=== PATIENT | male | born 1970 ===

== ENCOUNTER 2016-06-26 16:33 | Emergency (ER) | payer BC ==
[~2016-06-26] VITALS: Ht 188 cm; Wt 86.4 kg
[2016-06-26 16:37] VITALS: TEMP 97.2
[2016-06-26] MEDS ORDERED: OMEGA 31000 MG PO (16:52)
[2016-06-26 16:58] LABS: BASO # 0.1 (0.0-0.2); EOS # 0.2 (0.0-0.7); EOS % 1.4 % (0-4.0); GRAN # 7.4 (1.4-6.5); HEMATOCRIT 45.9 % (42.0-52.0); HEMOGLOBIN 15.3 g/dl (13.5-18.0); LYMPH # 2.9 (1.2-3.4); LYMPH % 25.5 % (20.0-51.0); MEAN CELL VOLUME 84 fl (80.0-100.0); MEAN CORPUSCULAR HEMOGLOBIN 28 pg (27.0-31.0); MEAN CORPUSCULAR HGB CONC 33 g/dl (33.0-37.0); MEAN PLATELET VOLUME 10.2 fl (7.4-10.4); MONO # 0.8 (0.1-0.6); MONO % 6.6 % (1.7-9.3); PLATELET COUNT 216 K/mm3 (130-400); RED BLOOD COUNT 5.44 M/mm3 (4.20-5.60); REDCELL DISTRIBUTION WIDTH-CV 12.4 % (11.5-14.5); WHITE BLOOD COUNT 11.4 K/mm3 (4.8-10.8)
[2016-06-26 17:11] LABS: ADJUSTED CALCIUM 9.6 mg/dL (8.4-10.2); ALBUMIN 4.5 gm/dL (3.5-5.0); BILIRUBIN,TOTAL 0.9 mg/dL (0.0-1.0); CREATININE, serum 1.13 mg/dL (0.66-1.25); POTASSIUM 3.6 mmol/L (3.4-5.0); TOTAL PROTEIN 7.5 gm/dL (6.4-8.2)
[2016-06-26 17:31] LABS: TROPONIN-I 0.11 ng/mL (0.000-0.034)
[2016-06-26 19:00] VITALS: BP 126/89; PULSE 68
== END 2016-06-26 19:12 | disposition short-term general hospital (02) ==
LOC: COL.ER 16:33
PROVIDERS: Emergency Medicine
DX: I21.4 Non-ST elevation (NSTEMI) myocardial infarction (principal)
CPT/HCPCS: C9113; J1650; J2060; J2270

== ENCOUNTER 2016-09-10 15:42 | Outpatient (RCR) | payer BC ==
[~2016-09-10 15:42] MED LIST: OMEGA 31000 MG PO
== END 2016-09-28 08:06 | disposition home or self-care (01) ==
LOC: COL.CR 15:42
DX: Z48.812 Encounter for surgical aftercare following surgery on the circulatory system (principal); Z95.1 Presence of aortocoronary bypass graft; Z95.5 Presence of coronary angioplasty implant and graft

== ENCOUNTER 2020-05-04 16:28 | Emergency (ER) | payer BC ==
[~2020-05-04] VITALS: Ht 190.5 cm; Wt 88.6 kg
[2020-05-04 16:35] VITALS: BP 124/81; PULSE 68; TEMP 97.6
[2020-05-04 17:28] LABS: BASO # 0.1 (0.0-0.2); BASO % 0.8 % (0.0-2.0); EOS # 0.1 (0.0-0.7); EOS % 0.6 % (0-4.0); GRAN % 62.8 % (42.2-75.2); HEMATOCRIT 43.4 % (42.0-52.0); HEMOGLOBIN 13.8 g/dl (13.5-18.0); LYMPH # 3.1 (1.2-3.4); LYMPH % 27.9 % (20.0-51.0); MEAN CELL VOLUME 88 fl (80.0-100.0); MEAN CORPUSCULAR HEMOGLOBIN 28 pg (27.0-31.0); MEAN CORPUSCULAR HGB CONC 32 g/dl (33.0-37.0); MEAN PLATELET VOLUME 10.2 fl (7.4-10.4); MONO # 0.8 (0.1-0.6); MONO % 7.5 % (1.7-9.3); PLATELET COUNT 208 K/mm3 (130-400); RED BLOOD COUNT 4.92 M/mm3 (4.20-5.60); REDCELL DISTRIBUTION WIDTH-CV 13.2 % (11.5-14.5)
[2020-05-04 17:34] LABS: CALCIUM 8.8 mg/dL (8.4-10.2); CREATININE, serum 1.05 (0.66-1.25); POTASSIUM 4.1 mmol/L (3.4-5.0)
[2020-05-04 17:51] LABS: PROTHROMBIN TIME 10.9 SECONDS (9.7-12.8)
[2020-05-04 17:54] LABS: PARTIAL THROMBOPLASTIN TIME 28.1 SECONDS (26.0-37.0)
[2020-05-04 17:59] LABS: D-DIMER < 200.00 ng/mLDDu (200-230)
[2020-05-04] MEDS ORDERED: MOTRIN 400400 MG/TAB PO (18:09)
== END 2020-05-04 18:17 | disposition home or self-care (01) ==
LOC: COL.ER 16:28
PROVIDERS: Emergency Medicine
DX: M79.662 Pain in left lower leg (principal)